=== PATIENT | female | born 1960 | race Caucasian/White ===

== ENCOUNTER → 2016-03-27 | Outpatient (CLI) | payer OTHER ==
[~2016-03-27] MED LIST: ALA1CRE2 TOPICAL; ALBU6.7H INH; BENZ100 PO; FLUT1INH3; KETO60IN6 IM; METH125I2 IM; PRED50 PO; TRIA.025%T TOPICAL
--- NOTE | 2016-03-27 14:22 | RADRPT ---
EXAM DATE/TIME: 03/27/2016 12:24 [facility] COMPARISON: CHEST SINGLE AP, April 20, 2015, 12:16. INDICATIONS : Cough and shortness of breath. MEDICAL HISTORY : Chronic obstructive pulmonary disease. SURGICAL HISTORY : None. ENCOUNTER: Initial ACUITY: 2 weeks PAIN SCORE: 0/10 LOCATION: chest FINDINGS: The heart is normal in size. The lungs demonstrate apical pleural thickening and chronic interstitial changes. No acute abnormality is seen. The osseous structures demonstrate mild degenerative changes but are otherwise intact. CONCLUSION: 1. COPD changes with biapical pleural thickening. Stable compared to previous exam. Madhu Gray MD on March 27, 2016 at 14:15 Board Certified Radiologist. This report was verified electronically.
== END ==
LOC: HRAD 11:58
PROVIDERS: ATTEND Family Medicine
DX: R06.02 Shortness of breath (principal); T78.40XA Allergy, unspecified, initial encounter
CPT/HCPCS: 71020

== ENCOUNTER → 2016-03-29 | Outpatient (CLI) | payer OTHER ==
[2016-03-29 10:41] LABS: HEMATOCRIT 41.4 % (35.0-46.0); MEAN CELL VOLUME 89.4 FL (80.0-100.0); MEAN CORPUSCULAR HEMOGLOBIN 29.9 PG (27.0-34.0); MEAN CORPUSCULAR HGB CONC 33.5 % (32.0-36.0); PLATELET COUNT 370 TH/MM3 (150-450); RED BLOOD COUNT 4.63 MIL/MM3 (4.00-5.30); RED CELL DISTRIBUTION WIDTH 13.8 % (11.6-17.2); WHITE BLOOD COUNT 7.1 TH/MM3 (4.0-11.0)
[2016-03-29 10:43] LABS: HEMO FLAGS AUTO DIFF
[2016-03-29 11:27] LABS: ALKALINE PHOSPHATASE 88 U/L (45-117); ALT (GPT) 30 U/L (10-53); ANION GAP 11 MEQ/L (5-15); AST (GOT) 19 U/L (15-37); BICARBONATE 23.5 MEQ/L (21.0-32.0); BLOOD UREA NITROGEN 24 MG/DL (7-18); CHLORIDE 105 MEQ/L (98-107); GLOMERULAR FILTRATION RATE 64 ML/MIN (>89); GLUCOSE,FASTING 119 MG/DL (74-99); HDL CHOLESTEROL 43.1 MG/DL (40.0-60.0); LDL CHOLESTEROL 137 MG/DL (0-99); POTASSIUM 4.4 MEQ/L (3.5-5.1); SODIUM (NA) 139 MEQ/L (136-145); TOTAL BILIRUBIN ADULT 0.4 MG/DL (0.2-1.0)
[2016-03-29 11:46] LABS: BANDS 5 % (0-6); EOSINOPHILS 1 % (0-4); NEUTROPHIL # MANUAL DIFF 4.2 TH/MM3 (1.8-7.7); POLYS (SEG NEUTROPHILS) 54 % (16-70); WBC DIFF SAMPLE 100
[2016-03-29 11:47] LABS: PLATELET ESTIMATE SMEAR NORMAL (NORMAL); PLATELET MORPHOLOGY NORMAL (NORMAL); SCAN/DIFF FINAL DIFF MANUAL
== END ==
LOC: CLAB 10:18
PROVIDERS: ATTEND Nurse Practitioner Family
DX: J44.9 Chronic obstructive pulmonary disease, unspecified (principal)
CPT/HCPCS: 36415; 80053; 80061; 84443; 85007; 85027

== ENCOUNTER 2016-12-24 12:06 | Emergency (ER) | payer OTHER ==
[~2016-12-24] VITALS: Ht 162.6 cm; Wt 81.0 kg
[~2016-12-24 12:06] MED LIST changes: -ALA1CRE2 TOPICAL; -KETO60IN6 IM; -METH125I2 IM; -PRED50 PO
[2016-12-24 12:09] VITALS: BP 134/102; PULSE 101; RESP 28; TEMP 98.4; O2SAT 97
[2016-12-24 12:30] VITALS: O2SAT 98
[2016-12-24] MEDS ORDERED: PHEN1LIQ60 PO (12:33)
[2016-12-24] MEDS: RESP: ALBUTEROL 2.5 MG/IPRATROPIUM 0.5 MG NEB (SCH) INH ×3 (12:43→13:02)
[2016-12-24] MEDS ORDERED: methylPREDNISolone SOD SUCC 125 MG/2 ML VIAL IV PUSH ONE (12:45)
--- NOTE | 2016-12-24 13:03 | PD ---
HPI Chief Complaint: Respiratory Symptoms Time Seen by Provider: 12:40 Travel History International Travel<30 days: No Contact w/Intl Traveler<30days: No Traveled to known affect area: No History of Present Illness HPI This is a 56-year-old female with history of COPD who presents for evaluation of cough and wheezing. Symptoms started yesterday. The cough is dry but she feels like she has some congestion in her chest that she would like to cough up. PFSH Past Medical History COPD: Yes Diminished Hearing: No Respiratory: Yes (COPD ) Tetanus Vaccination: < 5 Years Influenza Vaccination: No ?: Not Past Surgical History Surgical History: No Previous Surgery Social History Alcohol Use: No Tobacco Use: Yes (< 1ppd) Substance Use: No Allergies-Medications (Allergen,Severity, Reaction): Coded Allergies: codeine (Unverified Allergy, Severe, ITCHING, 12/24/16) acetaminophen (Unverified Allergy, Mild, Urinary Freq (Inc/Dec), 12/24/16) Reported Meds & Prescriptions Reported Meds & Active Scripts Active Proair Hfa 8.5 GM Inh (Albuterol Sulfate) 90 Mcg/Act Aer 2 Puff INH Q4-6H PRN 108 mcg/actuation Prednisone 20 Mg Tab 20 Mg PO BID 5 Days Azithromycin 250 Mg Tab 250 Mg PO DIRECTED Take 2 tabs (500 mg) on day 1 then 1 tab daily x 4 days. Proventil Hfa 6.7 GM Inh (Albuterol Sulfate) 90 Mcg/Act Aer 2 Puff INH Q4-6H PRN Reported Nyquil Severe Cold/Flu Liq (Fxkifhzggbkvs-Aeggldcfkd-IJ-Apap Liq) 5-6.25-10-325 Mg/15 Ml Liq 1 PO BID PRN Review of Systems Except as stated in HPI: all other systems reviewed are Neg Physical Exam Narrative GENERAL: Well-developed well-nourished female in no acute distress. Her vital signs have been reviewed. SKIN: Warm and dry. HEAD: Atraumatic. Normocephalic. EYES: Pupils equal and round. No scleral icterus. No injection or drainage. ENT: No nasal bleeding or discharge. Mucous membranes pink and moist. NECK: Trachea midline. No JVD. CARDIOVASCULAR: Regular rate and rhythm. No murmur appreciated. RESPIRATORY: No accessory muscle use. Wheezing noted bilaterally. No crackles. GASTROINTESTINAL: Abdomen soft, non-tender, nondistended. Hepatic and splenic margins not palpable. MUSCULOSKELETAL: No obvious deformities. No clubbing. No cyanosis. No edema. NEUROLOGICAL: Awake and alert. No obvious cranial nerve deficits. Motor grossly within normal limits. Normal speech. PSYCHIATRIC: Appropriate mood and affect; insight and judgment normal. Data Data Last Documented VS Vital Signs Date Time Temp Pulse Resp B/P (MAP) Pulse Ox O2 Delivery O2 Flow Rate FiO2 12/24/16 12:09 98.4 101 28 134/102 (113) 97 Orders Orders Iv Access Insert/Monitor (12/24/16 12:31) Ecg Monitoring (12/24/16 12:31) Oximetry (12/24/16 12:31) Chest, Single Ap (12/24/16 12:31) Methylprednisolone So Succ Inj (Solumedr (12/24/16 12:45) Albuterol-Ipratropium Neb (Duoneb Neb) (12/24/16 12:45) Ed Discharge Order (12/24/16 13:06) [facility] Medical Decision Making Medical Screen Exam Complete: Yes Emergency Medical Condition: Yes Medical Record Reviewed: Yes Differential Diagnosis COPD exacerbation, reactive airway disease, pneumonia, bronchitis Narrative Course Physical examination and history are consistent with COPD exacerbation. A chest x-ray was performed revealing no evidence of pneumonia. The patient was given Solu-Medrol, DuoNeb therapy with improvement in her symptoms. She is being discharged with azithromycin, prednisone, refill of her albuterol inhaler. Diagnosis Primary Impression: COPD exacerbation Additional Instructions: Medication as prescribed. Avoid tobacco products. Follow-up with primary care and return for any emergent medical conditions. Med/Other Pt SpecificInfo: Prescription(s) given Scripts Albuterol 8.5 GM Inh (Proair Hfa 8.5 GM Inh) 90 Mcg/Act Aer 2 PUFF INH Q4-6H Y for SHORTNESS OF BREATH, #1 INHALER 0 Refills 108 mcg/actuation Prov: Madhu Hoffman MD 12/24/16 Prednisone (Prednisone) 20 Mg Tab 20 MG PO BID for 5 Days, #10 TAB 0 Refills Prov: Madhu Hoffman MD 12/24/16 Azithromycin (Azithromycin) 250 Mg Tab 250 MG PO DIRECTED for Infection, #6 TAB 0 Refills Take 2 tabs (500 mg) on day 1 then 1 tab daily x 4 days. Prov: Madhu Hoffman MD 12/24/16 Disposition: 01 DISCHARGE HOME Condition: Stable Meño Anand Dec 24, 2016 13:03
--- NOTE | 2016-12-24 13:03 | RADRPT ---
EXAM DATE/TIME: 12/24/2016 12:51 [facility] COMPARISON: CHEST SINGLE AP, April 20, 2015, 12:16. INDICATIONS : Shortness of breath, chest pain, cough. MEDICAL HISTORY : Smoker. SURGICAL HISTORY : None. ENCOUNTER: Initial ACUITY: 2 days PAIN SCORE: 8/10 LOCATION: Bilateral upper chest FINDINGS: A single view of the chest demonstrates the lungs to be symmetrically aerated without evidence of mas s, infiltrate or effusion. The cardiomediastinal contours are unremarkable. Osseous structures are intact. CONCLUSION: No acute disease. Nathanael Pearl MD on December 24, 2016 at 13:01 Board Certified Radiologist. This report was verified electronically.
[2016-12-24] MEDS ORDERED: PRED20 PO (13:06)
[2016-12-24] MEDS ORDERED: ALBUAER3 INH (13:06)
[2016-12-24] MEDS ORDERED: AZIT250T3 PO (13:06)
[2016-12-24] MEDS ORDERED: BENZ100 PO (13:20)
[2016-12-24 14:10] VITALS: BP 119/76; PULSE 104; RESP 20; O2SAT 96
== END 2016-12-24 14:31 | disposition home or self-care (01) ==
LOC: NEPC 12:06
DX: J44.1 Chronic obstructive pulmonary disease with (acute) exacerbation (principal); Z72.0 Tobacco use
CPT/HCPCS: 71010; 94640; 94664; 96374; 99284; J2930

== ENCOUNTER 2017-04-14 01:58 | Emergency (ER) | payer OTHER ==
[2017-04-13 03:34] VITALS: O2SAT 97
[~2017-04-14] VITALS: Ht 162.6 cm; Wt 85.0 kg
[~2017-04-14 01:58] MED LIST changes: +ALBUAER3 INH; +AZIT250T3 PO; -FLUT1INH3; +PHEN1LIQ60 PO; +PRED20 PO; -TRIA.025%T TOPICAL
[2017-04-14 01:59] VITALS: BP 127/79; PULSE 94; RESP 20; TEMP 98; O2SAT 96
[2017-04-14] MEDS ORDERED: KETOROLAC TROMETHAMINE 30 MG/ML (IVP) VIAL IV PUSH ONE (03:30)
[2017-04-14] MEDS ORDERED: RESP: ALBUTEROL 2.5 MG/IPRATROPIUM 0.5 MG NEB (SCH) INH ONE (03:30)
--- NOTE | 2017-04-14 03:33 | PD ---
HPI Chief Complaint: Respiratory Symptoms Time Seen by Provider: 03:19 Travel History International Travel<30 days: No Contact w/Intl Traveler<30days: No Traveled to known affect area: No History of Present Illness HPI 57-year-old female presents to the emergency department by private transportation of the care of her significant other for complaint of 2 days of chest wall pain that is worsened by movement and breathing. Patient states she has COPD but does not have enough income to afford a primary care provider and thinks her COPD is worsening. Patient states that she has severe upper body chest and torso pain. Patient states that she needs pain medication. Patient denies hypertension dyslipidemia CAD or diabetes. Patient states she does not smoke. Patient's had no recent febrile illness or productive cough. No recent long distance travel protracted bedrest or surgical procedure. No lower extremity pain or swelling. No personal history of clotting disorder or family history of connective tissue disorder. Patient rates pain as severe and yells out and screams intermittently with the intensity of her pain. PFSH Past Medical History Narrative Medical COPD; no tobacco; nursing notes reviewed COPD: Yes Diminished Hearing: No Respiratory: Yes (COPD ) Influenza Vaccination: No ?: Not Past Surgical History Surgical History: No Previous Surgery Social History Alcohol Use: No Tobacco Use: No (< 1ppd) Substance Use: No Allergies-Medications (Allergen,Severity, Reaction): Coded Allergies: codeine (Unverified Allergy, Severe, ITCHING, 12/24/16) acetaminophen (Unverified Allergy, Mild, Urinary Freq (Inc/Dec), 12/24/16) Reported Meds & Prescriptions Reported Meds & Active Scripts Active Ventolin Hfa 18 GM Inh (Albuterol Sulfate) 90 Mcg/Act Aer 2 Puff INH Q4-6H PRN Zithromax Tri-Jignesh (Azithromycin) 500 Mg Dspk 500 Mg PO DAILY Prednisone 50 Mg Tab 50 Mg PO DAILY 4 Days Tessalon Perles (Benzonatate) 100 Mg Cap 200 Mg PO TID PRN Proair Hfa 8.5 GM Inh (Albuterol Sulfate) 90 Mcg/Act Aer 2 Puff INH Q4-6H PRN 108 mcg/actuation Prednisone 20 Mg Tab 20 Mg PO BID 5 Days Azithromycin 250 Mg Tab 250 Mg PO DIRECTED Take 2 tabs (500 mg) on day 1 then 1 tab daily x 4 days. Proventil Hfa 6.7 GM Inh (Albuterol Sulfate) 90 Mcg/Act Aer 2 Puff INH Q4-6H PRN Reported Nyquil Severe Cold/Flu Liq (Redvoarczugsh-Flfwindplz-IB-Apap Liq) 5-6.25-10-325 Mg/15 Ml Liq 1 PO BID PRN Review of Systems Except as stated in HPI: all other systems reviewed are Neg Physical Exam Narrative GENERAL: Well-developed well-nourished female in no acute distress or respiratory distress SKIN: Warm and dry. HEAD: Normocephalic. EYES: No scleral icterus. No injection or drainage. NECK: Supple, trachea midline. No JVD or lymphadenopathy. CARDIOVASCULAR: Regular rate and rhythm without murmurs, gallops, or rubs. RESPIRATORY: Breath sounds equal bilaterally. No accessory muscle use. GASTROINTESTINAL: Abdomen soft, non-tender, nondistended. MUSCULOSKELETAL: No cyanosis, or edema. BACK: Nontender without obvious deformity. No CVA tenderness. Data Data Last Documented VS Vital Signs Date Time Temp Pulse Resp B/P (MAP) Pulse Ox O2 Delivery O2 Flow Rate FiO2 04/14/17 07:07 132/74 (93) 98 04/14/17 05:15 Nasal Cannula 2.00 04/14/17 01:59 98.0 94 20 04/13/17 03:34 21 Orders Orders Complete Blood Count With Diff (04/14/17 03:20) Basic Metabolic Panel (Bmp) (04/14/17 03:20) B-Type Natriuretic Peptide (04/14/17 03:20) Magnesium (Mg) (04/14/17 03:20) Ckmb (Isoenzyme) Profile (04/14/17 03:20) Troponin I (04/14/17 03:20) Influenzae A/B Antigen (04/14/17 03:20) Iv Access Insert/Monitor (04/14/17 03:20) Electrocardiogram (04/14/17 03:20) Ecg Monitoring (04/14/17 03:20) Oximetry (04/14/17 03:20) Oxygen Administration (04/14/17 03:20) Chest, Single Ap (04/14/17 03:20) Sodium Chloride 0.9% Flush (Ns Flush) (04/14/17 03:30) Albuterol-Ipratropium Neb (Duoneb Neb) (04/14/17 03:30) Ketorolac Inj (Toradol Inj) (04/14/17 03:30) Albuterol-Ipratropium Neb (Duoneb Neb) (04/14/17 05:00) Ct Pulmonary Angiogram (04/14/17 ) Methylprednisolone So Succ Inj (Solumedr (04/14/17 05:30) Iohexol 350 Inj (Omnipaque 350 Inj) (04/14/17 05:44) Ed Discharge Order (04/14/17 06:39) Labs Laboratory Tests Test 04/14/17 03:30 White Blood Count 7.1 TH/MM3 Red Blood Count 3.85 MIL/MM3 Hemoglobin 8.2 GM/DL Hematocrit 27.0 % Mean Corpuscular Volume 70.3 FL Mean Corpuscular Hemoglobin 21.3 PG Mean Corpuscular Hemoglobin Concent 30.3 % Red Cell Distribution Width 18.3 % Platelet Count 443 TH/MM3 Mean Platelet Volume 7.0 FL Neutrophils (%) (Auto) 55.8 % Lymphocytes (%) (Auto) 30.9 % Monocytes (%) (Auto) 8.4 % Eosinophils (%) (Auto) 3.7 % Basophils (%) (Auto) 1.2 % Neutrophils # (Auto) 4.0 TH/MM3 Lymphocytes # (Auto) 2.2 TH/MM3 Monocytes # (Auto) 0.6 TH/MM3 Eosinophils # (Auto) 0.3 TH/MM3 Basophils # (Auto) 0.1 TH/MM3 CBC Comment DIFF FINAL Differential Comment Blood Urea Nitrogen 12 MG/DL Creatinine 0.74 MG/DL Random Glucose 115 MG/DL Calcium Level 8.6 MG/DL Magnesium Level 2.3 MG/DL Sodium Level 140 MEQ/L Potassium Level 4.0 MEQ/L Chloride Level 106 MEQ/L Carbon Dioxide Level 28.0 MEQ/L Anion Gap 6 MEQ/L Estimat Glomerular Filtration Rate 81 ML/MIN Total Creatine Kinase 40 U/L Troponin I LESS THAN 0.02 NG/ML B-Type Natriuretic Peptide 4 PG/ML MDM Medical Decision Making Medical Screen Exam Complete: Yes Emergency Medical Condition: Yes Medical Record Reviewed: Yes Interpretation(s) EKG: Normal sinus rhythm rate [address] segment elevation injury pattern or ectopy noted Troponin I less than 0.02, and elevated BMP 4, not elevated Last Impressions Chest X-Ray 04/14/17 0320 Signed Impressions: Service Date/Time: Friday, April 14, 2017 03:37 - CONCLUSION: No acute disease. Small hiatal hernia. Gerardo Art MD CT Angiography 04/14/17 0000 Signed Impressions: Service Date/Time: Friday, April 14, 2017 05:42 - CONCLUSION: 1. Exam degraded by motion. Negative for pulmonary embolus. Mild emphysema. No effusions. Gerardo Art MD CBC & BMP Diagram 04/14/17 03:30 Calcium Level 8.6, Magnesium Level 2.3 Vital Signs Date Time Temp Pulse Resp B/P (MAP) Pulse Ox O2 Delivery O2 Flow Rate FiO2 04/14/17 07:07 132/74 (93) 98 04/14/17 05:15 98 Nasal Cannula 2.00 04/14/17 02:05 97 Room Air 04/14/17 01:59 98.0 94 20 127/79 (95) 96 04/13/17 03:34 97 21 Differential Diagnosis Chest wall pain pleurisy, costochondritis, pneumonia, PE, gastritis, peptic ulcer disease, atypical pancreatitis atypical biliary colic, ACS, RI, exacerbation COPD, chronic pain syndrome Narrative Course CBC with automated differential remarkable for anemia hemoglobin 8.6 with chronic indices; patient denies known history of anemia and denies any black or tarry stools or hematemesis coffee-ground emesis hemoptysis excessive bruising or gum bleeding or hematuria. Patient denies any recent injury or fall. Patient is aware of lab values are otherwise grossly in normal range. Troponin I is less than 0.02, elevated EKG is normal, chest x-ray reveals no acute abnormality. Patient agreed to rectal exam which was Hemoccult negative light brown stool on exam glove. It is now 5:30 AM patient remains hemodynamically stable has received updrafts 2 will receive a one-time dose of Solu-Medrol and Medrol Dosepak for history of COPD and musculoskeletal pain. Flu test is negative. Patient now stating shortness of breath and chest pain are persistent and worsening and is now complaining of pleuritic chest pain; CTA pulmonary performed. CT negative for PE Patient informed of lab results and stable for outpatient management with close follow-up with primary care provider/urgent care Diagnosis Primary Impression: Bronchitis Additional Impressions: Pleuritic chest pain Anemia Referrals: [facility] call for appointment [facility] call for appointment Patient Instructions: General Instructions Additional Instructions: Complete course of medications as prescribed Follow-up with primary care provider may follow up with [facility] or [facility] May take ibuprofen for fever 100.4F or greater for pain associated with inflammation Return to the emergency department for any concerns or change in condition Med/Other Pt SpecificInfo: Prescription(s) given Scripts Albuterol 18 GM Inh (Ventolin Hfa 18 GM Inh) 90 Mcg/Act Aer 2 PUFF INH Q4-6H Y for SHORTNESS OF BREATH, #1 INHALER 0 Refills Prov: Zulay Reeves MD 04/14/17 Azithromycin (Zithromax Tri-Jignesh) 500 Mg Dspk 500 MG PO DAILY for Infection, #1 DSPK 0 Refills Prov: Zulay Reeves MD 04/14/17 Prednisone (Prednisone) 50 Mg Tab 50 MG PO DAILY for 4 Days, #4 TAB 0 Refills Prov: Zulay Reeves MD 04/14/17 Disposition: 01 DISCHARGE HOME Condition: Stable Zulay Reeves MD Apr 14, 2017 03:33
[2017-04-14] MEDS: SODIUM CHLORIDE 0.9% FLUSH 10 ML FLUSH IVF PRN ×2 (03:57→05:54)
[2017-04-14 04:03] LABS: BASOPHIL # 0.1 TH/MM3 (0-0.2); BASOPHIL % 1.2 % (0.0-2.0); EOSINOPHIL # 0.3 TH/MM3 (0-0.4); EOSINOPHIL % 3.7 % (0.0-4.0); HEMOGLOBIN 8.2 GM/DL (11.6-15.3); LYMPH % 30.9 % (9.0-44.0); LYMPHOCYTE # 2.2 TH/MM3 (1.0-4.8); MEAN CELL VOLUME 70.3 FL (80.0-100.0); MEAN CORPUSCULAR HEMOGLOBIN 21.3 PG (27.0-34.0); MEAN CORPUSCULAR HGB CONC 30.3 % (32.0-36.0); MONO % 8.4 % (0.0-8.0); MONOCYTE # 0.6 TH/MM3 (0-0.9); NEUT % 55.8 % (16.0-70.0); PLATELET COUNT 443 TH/MM3 (150-450); RED BLOOD COUNT 3.85 MIL/MM3 (4.00-5.30); RED CELL DISTRIBUTION WIDTH 18.3 % (11.6-17.2); WHITE BLOOD COUNT 7.1 TH/MM3 (4.0-11.0)
--- NOTE | 2017-04-14 04:05 | RADRPT ---
EXAM DATE/TIME: 04/14/2017 03:37 [facility] COMPARISON: No previous studies available for comparison. INDICATIONS : Short of breath. MEDICAL HISTORY : None. SURGICAL HISTORY : None. ENCOUNTER: Initial ACUITY: 1 day PAIN SCORE: 7/10 LOCATION: Bilateral chest FINDINGS: A single view of the chest demonstrates the lungs to be symmetrically aerated without evidence of mas s, infiltrate or effusion. The cardiomediastinal contours are unremarkable. Osseous structures are intact. CONCLUSION: No acute disease. Small hiatal hernia. Gerardo Art MD on April 14, 2017 at 4:02 Board Certified Radiologist. This report was verified electronically.
[2017-04-14 04:28] LABS: BLOOD UREA NITROGEN 12 MG/DL (7-18); CALCIUM 8.6 MG/DL (8.5-10.1); CHLORIDE 106 MEQ/L (98-107); CREATININE 0.74 MG/DL (0.50-1.00); GLOMERULAR FILTRATION RATE 81 ML/MIN (>89); GLUCOSE,RANDOM 115 MG/DL (74-106); MAGNESIUM 2.3 MG/DL (1.5-2.5); SODIUM (NA) 140 MEQ/L (136-145)
[2017-04-14] MEDS ORDERED: RESP: ALBUTEROL 2.5 MG/IPRATROPIUM 0.5 MG NEB (SCH) NEB ONE (05:00)
[2017-04-14 05:15] VITALS: O2SAT 98
[2017-04-14 05:21] LABS: TROPONIN I LESS THAN 0.02 NG/ML (0.02-0.05)
[2017-04-14] MEDS ORDERED: methylPREDNISolone SOD SUCC 125 MG/2 ML VIAL IV PUSH ONE (05:30)
[2017-04-14] MEDS ORDERED: IOHEXOL 350 MG/ML 10 ML VIAL (for RAD DIAG) IVCONTRAST ONE (05:44)
--- NOTE | 2017-04-14 06:22 | RADRPT ---
EXAM DATE/TIME: 04/14/2017 05:42 [facility] COMPARISON: No previous studies available for comparison. INDICATIONS : Chest pain and shortness of breath. IV CONTRAST: 75 cc Omnipaque 350 (iohexol) IV RADIATION DOSE: 15.86 CTDIvol (mGy) MEDICAL HISTORY : Chronic obstructive pulmonary disease. SURGICAL HISTORY : None. ENCOUNTER: Initial ACUITY: 2 days PAIN SCALE: 6/10 LOCATION: Bilateral chest TECHNIQUE: Volumetric scanning of the chest was performed using a pulmonary embolism protocol MIP images were re constructed. Using automated exposure control and adjustment of the mA and/or kV according to patien t size, radiation dose was kept as low as reasonably achievable to obtain optimal diagnostic quality images. DICOM format image data is available electronically for review and comparison. Follow-up recommendations for detected pulmonary nodules are based at a minimum on nodule size and pa tient risk factors according to Fleischner Society Guidelines. FINDINGS: Exam graded by motion. No definite filling defects to suggest pulmonary emboli. There is mild emphyse ma. No consolidation or effusion. No adenopathy. Mild coronary calcifications. Moderate hiatal hernia. No acute findings in the upper abdomen. CONCLUSION: 1. Exam degraded by motion. Negative for pulmonary embolus. Mild emphysema. No effusions. Gerardo Art MD on April 14, 2017 at 6:15 Board Certified Radiologist. This report was verified electronically.
[2017-04-14] MEDS ORDERED: VENTAER INH (06:42)
[2017-04-14] MEDS ORDERED: ZITHTAB2 PO (06:42)
[2017-04-14] MEDS ORDERED: PRED50 PO (06:42)
[2017-04-14 07:07] VITALS: BP 132/74
--- NOTE | 2017-04-14 16:56 | EKG ---
Date Performed: 04/14/2017 Time Performed: 03:31:20 PTAGE: 57 years EKG: Sinus rhythm NORMAL ECG Since the prior tracing, there has been no significant change DOCTOR: Calixto Hoffman Interpretating Date/Time 04/14/2017 16:54:53
== END 2017-04-14 07:08 | disposition home or self-care (01) ==
LOC: NEPC 01:58
DX: J40 Bronchitis, not specified as acute or chronic (principal); D64.9 Anemia, unspecified; K44.9 Diaphragmatic hernia without obstruction or gangrene; J43.9 Emphysema, unspecified; J44.9 Chronic obstructive pulmonary disease, unspecified; F17.200 Nicotine dependence, unspecified, uncomplicated; Z88.5 Allergy status to narcotic agent; Z88.6 Allergy status to analgesic agent; Z79.899 Other long term (current) drug therapy
CPT/HCPCS: 71045; 71275; 80048; 82550; 83735; 83880; 84484; 85025; 87804; 93005; 94640; 94664; 96374; 96375; 99285; J1885; J2930; Q9967